=== PATIENT | male | born 1980 ===

== ENCOUNTER 2024-08-04 19:52 | Emergency (ER) | payer BC ==
[2024-08-04 21:57] VITALS: BP 123/72; PULSE 57
[2024-08-04] MEDS: Dexamethasone 4 MG/ML SDV IM ONE (22:29)
== END 2024-08-04 22:35 | disposition home or self-care (01) ==
LOC: DL.ED 19:52
DX: M54.14 Radiculopathy, thoracic region (principal); Z86.16 Personal history of COVID-19; Z79.899 Other long term (current) drug therapy
CPT/HCPCS: 72128; 96372; 99283; J1100

== ENCOUNTER 2024-09-21 16:29 | Emergency (ER) | payer BC ==
[2024-09-21] MEDS: Ketorolac 30 MG/ML SDV IM ONE (17:55)
[2024-09-21] MEDS: Morphine 2 MG/ML SYRINGE IM ONE (18:22)
[2024-09-21] MEDS: Diazepam 5 MG Tab PO ONE (20:04)
[2024-09-21] MEDS: Take Home: Acetaminophen/HYDROcodone 325-5 MG, 5 Tab Pack PO ONE (20:05)
[2024-09-21 20:14] VITALS: BP 142/87; PULSE 72
== END 2024-09-21 20:07 | disposition home or self-care (01) ==
LOC: DL.ED 16:29
DX: M51.26 Other intervertebral disc displacement, lumbar region (principal); M99.73 Connective tissue and disc stenosis of intervertebral foramina of lumbar region; K59.00 Constipation, unspecified; M54.41 Lumbago with sciatica, right side; I10 Essential (primary) hypertension; Z86.16 Personal history of COVID-19; Z79.899 Other long term (current) drug therapy
CPT/HCPCS: 72131; 96372; 99283; 99284; A9270-GY; J1885; J2270; J3360